=== PATIENT | female | born 1985 | race Caucasian/White ===

== ENCOUNTER 2024-07-18 03:21 | Inpatient (IN) | payer OTHER, SELFPAY ==
[2024-07-17] VITALS (9 sets, daily range): BP systolic 67–101; BP diastolic 41–75; BMI 25.5
--- NOTE | 2024-07-17 19:32 | ED.GENMED ---
History of Present Illness
General
Chief Complaint: Abdominal Pain
Source: patient and spouse
Time Seen by Provider: 07/17/24 19:15
History of Present Illness
History of Present Illness:
This patient is a 39-year-old female presents emergency department with complaints of discomfort in the left upper quadrant and right lower quad that started on evening and intermittently continues. Patient states the left upper quadrant
pain has been a longstanding problem and in fact had an outpatient CAT scan to evaluate this about a week or so ago that was reportedly unremarkable. She also states that she has a questionable diagnosis of Crohn and was told after a capsule study
that she does not properly digest her food. She sometimes she will vomit undigested food if she eats too much. She denies recent nausea or vomiting, fever, chills, chest pain, shortness of breath. She states she had a formed nonbloody nonblack
stool this morning, no stool since then, and it was particularly foul-smelling to her. She denies travel or recent antibiotics. Patient states the pain in her abdomen comes and goes, feels like 'I eat a cactus', also described as feeling like
things are not moving through fully. She ate and pain returned...then resolved. She ate again today and pain returned, which prompted her visit here.
Past History
Past History
ED Past Medical History: Fibromyalgia, GERD, Other (Chronic pain, Crohn's disease, IBS Under pain management) and Other
ED Past Surgical History: Cholecystectomy, and Other (Breast augmentation)
Social History
Tobacco: Former smoker
Alcohol: Occasional
Drug: None
Personal: Single
Living: with family
Employment: Disabled
Family History
Family History: Other (Noncontributory )
Phy Exam
Physical Exam
Physical Exam:
GENERAL: Alert , in no apparent distress
EYE: pupils equal and reactive
NECK: Supple, no significant adenopathy.
ENT: o/p clr, mmm.
CARDIAC: Regular rate and rhythm .
LUNGS: Clear breath sounds bilaterally, no acute respiratory distress, no wheezes/rales/rhonchi
ABDOMEN: Soft, nonspecific vague tenderness, no r/g, no cvat
NEUROLOGICAL: Alert and oriented, no focal neuro deficits
SKIN: Warm and dry, skin intact.
MUSCULOSKELETAL: No edema, well perfused.
PSYCH: Normal and appropriate interaction.
Course
Orders/Labs/Results
Orders:
Orders
07/17/24 19:31
Dicyclomine [Bentyl] 20 mg PO NOW STA
Test Result ONCE
CR Obstruct Series W/pa Chest Urgent
Comment:
Reason For Exam: abd pain
07/17/24 19:35
Complete Blood Count/No Diff Urgent
Comprehensive Metabolic Panel Urgent
HCG, Serum Qualitative Screen Urgent
Lipase Urgent
07/17/24 19:42
Urinalysis Reflex To Culture Urgent
Date Specimen was Collected: 07/17/24
Time Specimen was Collected: 19:37
Urine Microscopic Reflex Cult Urgent
07/17/24 22:21
CT Abd/Pel (IV only)-DH only Urgent
Comment:
Reason For Exam: PAIN, HX CROHNS/IBS
0.9% Sodium Chloride 500 ml [Nss] 500 ml IV BOLUS
07/17/24 22:24
HYDROmorphone [Dilaudid] 0.5 mg IV NOW STA
07/18/24 01:37
LevoFLOXacin 500 MG/100 ML [Levaquin] 500 mg in 100 ml IV NOW
MetroNIDAZOLE 500 MG/100 ML [Flagyl 500 mg] 100 ml IV NOW
Abnormal Lab Results
07/17/24 07/17/24
19:35 19:42
RBC 3.27 L 10^6/uL
(4.20-5.40)
Hgb 10.1 L g/dL
(12.0-16.0)
Hct 29.0 L %
(37.0-47.0)
Leukocyte Esterase Rfl Trace A
(Negative)
07/17/24 19:35
07/17/24 19:35
Vital Signs
Initial and Last Documented VS:
Initial Vital Signs
Temp Pulse Resp BP Pulse Ox
97.3 F 91 16 101/75 100
07/17/24 18:53 07/17/24 18:53 07/17/24 18:53 07/17/24 18:53 07/17/24 18:53
Last Documented Vital Signs
Temp Pulse Resp BP Pulse Ox
97.3 F 66 11 79/53 99
07/17/24 18:53 07/18/24 00:00 07/18/24 00:00 07/18/24 00:00 07/18/24 00:00
*Critical Care Note
Total Time (30-74mins, 75-104mins- exclusive of procedures): Not Applicable
Update Note
Update Note:
Patient presents to the Emergency Department with __abdominal pain
Number and Complexity of Problems Addressed at the Encounter
� Chronic conditions affecting care:
� Acute Exacerbation and/or Progression of Chronic Illness:
� Differential Diagnosis includes: But not limited to IBS, bowel obstruction, ileus, etc. etc.
Amount and/or Complexity of Data to be Reviewed and Analyzed
� I performed an independent evaluation of and my interpretation is:
EKG:
CT: Vision read 'mural thickening of the cecum and proximal ascending colon with surrounding inflammatory stranding, most likely representing colitis. This may represent an IBD/Crohn's flare. Consider other infectious
inflammatory etiologies as well. The colon involved by the inflammatory stranding contains diverticulosis. Although the diverticula do not appear discretely inflamed, given the extent of inflammatory stranding, and early superimposed
diverticulitis is also possible. Mural thickening of the bladder is also suspicious for concurrent cystitis. Correlation with UA is recommended. The appendix itself is not inflamed. No evidence of bowel obstruction. Noninflamed colonic
diverticulosis seen elsewhere throughout the colon. Small amount of pelvic free fluid. Bilateral femoral head osteonecrosis.)
Xrays: obstr series nad
Laboratory Studies:baseline anemia, otherwise unremkarable
Other:
� Review of other/old records reveals:
� Clinical information was obtained by an independent historian: Partner who is at bedside
� Prescriptions/Medications Considered but not given:
� Further testing considered but not performed:
Risk of Complications and/or Morbidity or Mortality of Patient Management
� Social determinants of health affecting care:
� Discussion with other providers (PCP, Hospitalists, Consultants, etc):
� Escalation of care including admission/observation vs risk of discharge considered: 10:00 PM Long discussion with patient, consideration for further testing such as CAT scan here although weighing risks and benefits of further
radiation and suspected low likelihood of further findings (ex. appy, ex Crohn's flare etc) given nl labs, no fever, no focal ttp, etc...she elects to go home with observation at home, bland diet, and GI f/u. D/w her import of f/ua nd reasons to
rted, encouraged to RTED if sxs persist/change/worsen.
10:25pm Pt developed an episode of hypotension just prior to discharge...no change in pain. Will readjust w/u, CT ordered, NS running, pt awake and alert.
158AM CT scan noted, pt aware of recommendation for iv abx, admission/observation. We have rechecked bp many times...hypotension continues, although not c/w her clinical exam i.e. she is without sxs, not dizzy, sitting up awake and alert. NS
ordered, TT to Dr Le aware of admission and details.
ED Attending Note
-
Portions of this chart may have been created with voice recognition software.� Occasional wrong word or��sound alike� substitutions may have occurred due to the inherent limitations of voice recognition software.
Discharge Plan
Departure
Patient Disposition: Admit
Date of Disposition: 07/18/24
Time of Disposition: 01:56
Admit to: Telemetry
Admit to doctor: spenser
Presentation/result/management discussed w/ accepting MD/DO: Hospitalist
Patient with high blood pressure during this ER visit?: No
Condition: Good
Discharge Problem:
Abdominal pain, Colitis
Instructions: Abdominal Pain
Prescriptions:
No Action
oxycodone 10 MG tablet
10 mg PO Q6H PRN (Reason: moderate pain)
Patient Comments:
03/29/2023: last filled 03/14/23, 120 tabs for 30 days from [facility]
tizanidine 4 mg tablet
8 mg PO HS
tizanidine 4 mg tablet
4 mg PO DAILY PRN (Reason: muscle spasms)
propranolol 10 mg tablet
10 mg PO QID
gabapentin 300 mg capsule
600 mg PO HS
gabapentin 300 mg capsule
300 mg PO DAILY PRN (Reason: neuropathy)
dicyclomine 10 mg Capsule
10 mg PO DAILY PRN (Reason: left lower quadrant pain) Qty: 30 0RF
silver sulfadiazine 1 % Cream
1 applic topical BIDPRN PRN (Reason: right hand skin wound) Qty: 25 0RF
nicotine 14 mg/24 hr Patch 24 Hour
14 mg transdermal DAILY Qty: 30 0RF
pantoprazole 40 mg Tablet,Delayed Release (Dr/Ec)
40 mg PO BID Qty: 60 0RF
Referrals:
Rogers Bailey IV, MD [Family Provider] -
Rai Cooper MD [Active] - Next open appointment
Activity Restrictions/Additional Instructions:
IF YOU DEVELOP INCREASING/NEW/PERSISTENT PAIN, FEVER, VOMITING, BLEEDING, DIZZINESS, OR OTHER WORRISOME SIGNS, GO TO THE ER IMMEDIATELY!
Interventions
Interventions:
*Risk Screen - Suicide Last Done: 07/17/24 18:53
*General Assessment Last Done: 07/17/24 19:38
*Neglect/Abuse Screening Last Done: 07/17/24 18:53
ED- Fall Risk Assessment Last Done: 07/17/24 19:39
*ED COVID-19 Vaccine History Last Done: 07/17/24 19:38
HV-Ebqocr-Tmwvyryvyi Assessment Last Done: 07/17/24 19:39
Discharge Date and Time
Print Language: KOREAN
[2024-07-17 19:41] LABS: Hemoglobin 10.1 g/dL (12.0-16.0); Mean Corp Hgb Conc. 34.8 g/dL (33.0-37.0); Mean Corpuscular Hgb 30.9 pg (27.0-31.0); Mean Corpuscular Volume 88.7 fL (81.0-99.0); Mean Platelet Volume 9.5 fL (7.4-10.4); Platelet Count 324 10^3/uL (130-400); Red Blood Cell Count 3.27 10^6/uL (4.20-5.40); Red Cell Dist. Width 13.5 % (11.5-14.5); White Blood Cell Count 10.6 10^3/uL (4.8-10.8)
[2024-07-17] MEDS: BENTYL 20 MG PO (19:45)
[2024-07-17 19:49] LABS: Urine Albumin Negative (Neg - Trace); Urine Bilirubin Negative (Negative); Urine Character Clear (Clear); Urine Color Yellow; Urine Glucose Negative (Negative); Urine Ketone Negative (Negative); Urine Leukocyte Trace (Negative); Urine Nitrite Negative (Negative); Urine Occult Blood Negative (Negative); Urine Specific Gravity 1.025 (<1.030); Urine Urobilinogen Negative (Neg - 1+)
[2024-07-17 19:53] LABS: HCG, Serum Qualitative Screen Negative
[2024-07-17 19:57] LABS: ALT (SGPT) 13 U/L (0-35); AST (SGOT) 18 U/L (14-36); Albumin 4.1 g/dl (3.5-5.0); Alkaline Phosphatase 63 U/L (38-126); Blood Urea Nitrogen 11 mg/dl (7-17); Calcium 9.2 mg/dl (8.4-10.2); Carbon Dioxide 28 mmol/L (22-30); Chloride 101 mmol/L (98-107); Estimated Creatinine Clearance 95 ml/min; Glucose 84 mg/dl (70-99); Lipase 101 U/L (23-300); Sodium 139 mmol/L (135-145); Total Bilirubin 0.6 mg/dl (0.2-1.3); Total Protein 6.5 g/dl (6.3-8.2); eGFR > 60.00
[2024-07-17 20:00] LABS: Urine Red Blood Cell 0-2 /HPF (0-2); Urine White Cell 0-2 /HPF (0-5)
[2024-07-17] MEDS: NSS 500 IV (22:39)
[2024-07-17] MEDS: DILAUDID 0.5 MG IV (22:40)
--- NOTE | 2024-07-17 23:15 | EDRN ---
Report received, introduced myself to patient, her BP is still low, only about 200cc left of normal saline, spoke with Dr. Momin would like patient to go to CT sooner rather then later, informed assistant unit forester, patient is A/oX3 will continue to monitor,
Dr. Momin does not want patient getting up out of bed right now.
[2024-07-18] VITALS (29 sets, daily range): BP systolic 48–125; BP diastolic 28–102; PULSE 77–86; BMI 25.6
--- NOTE | 2024-07-18 00:30 | EDRN ---
Patients fluids completed, BP remains low, Dr. Momin aware, wants to see how the CT is, patient A/Ox3, will continue to closely monitor
--- NOTE | 2024-07-18 01:30 | EDRN ---
Patient nutrition specialist calles, wanting to use restroom, patients BP still remains low, so we did a bedside commode with me standing right next to patient, patient reports slight dizziness sometimes when standing, however is able to urinate and back in bed
resting comfortably, repeated patients BP once back in bed, repeat pressure was 69/45 (54), informed Dr. Momin of everything, Dr. Momin back in at bedside going over CT results with patient and plan for patient to be admitted to the hospital. Did a
manual blood pressure with BP of 78/54, informed Dr. Momin of this, meds being ordered for patient to receive.
[2024-07-18] MEDS: LEVAQUIN 100 IV (01:59)
[2024-07-18] MEDS: NSS 1000 IV (02:00)
--- NOTE | 2024-07-18 02:39 | EDRN ---
Dr. Le in at bedside working on admission with patient.
[2024-07-18] MEDS: ProAmatine 5 MG PO (02:48)
[2024-07-18] MEDS: FLAGYL 500 MG 100 IV (02:48)
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
[2024-07-18] MEDS: TORADOL 15 MG IV (03:34)
--- NOTE | 2024-07-18 03:41 | EDRN ---
Patient needing to use restroom, walked with patient into restroom, was able to ambulate without being dizzy and then back in bed and repeated blood pressure which seems to be holding with systolic in the upper 80s, will continue to monitor, patient
aware we are waiting on a bed at this time.
--- NOTE | 2024-07-18 04:16 | EDRN ---
Patient is sleeping at this time, call calles in reach, blood pressure is increasing at this time, will continue to monitor
[2024-07-18] MEDS: ZOSYN 50 IV ×3 (06:03→17:24)
[2024-07-18 06:38] LABS: Hematocrit 30.9 % (37.0-47.0); Hemoglobin 10.5 g/dL (12.0-16.0); Mean Corpuscular Hgb 30.5 pg (27.0-31.0); Mean Corpuscular Volume 89.8 fL (81.0-99.0); Mean Platelet Volume 9.7 fL (7.4-10.4); Platelet Count 292 10^3/uL (130-400); Red Blood Cell Count 3.44 10^6/uL (4.20-5.40); Red Cell Dist. Width 13.5 % (11.5-14.5); White Blood Cell Count 8.1 10^3/uL (4.8-10.8)
[2024-07-18] MEDS: LR 1000 IV ×2 (06:40→17:24)
[2024-07-18 06:49] LABS: Lactic Acid 0.6 mmol/L (0.7-2.0)
--- NOTE | 2024-07-18 06:50 | PTCARENOTE ---
Received pt from the ED via stretcher; pt with steady gait from stretcher to hospital bed. AAOx3, NSR on the monitor, lungs clear, SpO2 98% on RA. BP stable 96/68, no complaints of dizziness/lightheadedness. Pt c/o 8/10 pain, politely declines pain
meds at this time, pt states she is hoping to go home today and f/u outpatient per the plan prior to her hypotensive episode in the ED. Pt updated on POC, no questions at this time, resting comfortably in bed, call calles within reach.
[2024-07-18 06:56] LABS: Iron 50 ug/dl (37-170)
[2024-07-18 06:58] LABS: Blood Urea Nitrogen 7 mg/dl (7-17); Carbon Dioxide 25 mmol/L (22-30); Chloride 108 mmol/L (98-107); Estimated Creatinine Clearance 111 ml/min; Glucose 91 mg/dl (70-99); Sodium 142 mmol/L (135-145); eGFR > 60.00
[2024-07-18 07:05] LABS: Percent Saturation 16 % (20-50); Total Iron Binding Capacity 303 ug/dl (265-497)
[2024-07-18 07:28] LABS: Cortisol, Random 16.2 ug/dl
--- NOTE | 2024-07-18 07:34 | PTCARENOTE ---
Ignore documented BP 48/39 - BP cuff was not on patient. Actual BP 97/47.
[2024-07-18 07:50] LABS: Erythrocyte Sed Rate 43 mm/hour (0-20)
[2024-07-18] MEDS: PROTONIX IV 40 MG IV (09:09)
[2024-07-18] MEDS: NSS (PRESERVATIVE FREE) 10 ML IV (09:09)
--- NOTE | 2024-07-18 09:10 | CON.GI ---
Consultation
-
Date/Time Consultation Requested: 07/18/24 at 7am
Date/Time Consultation Performed: 07/18/24 at 8am
Requesting Provider: Rey
Performing Provider: Salma
Reason for Consultation: abd pain
Medical History
Chief Complaint / HPI
Chief Complaint: abd pain
History of Present Illness:
This patient is a 39-year-old woman with a history of chronic GI symptoms who was first seen in 2013 for question of Crohn's disease with negative studies who has been seeing Dr. Cooper in our GI office last year for vague right lower quadrant and
left upper quadrant abdominal pain. At that time she had both an upper and lower endoscopy done. She did have large polyps in her colon and actually did have a post polypectomy bleed requiring repeat colonoscopy. Biopsies and brief visualization
of the terminal ileum were normal. The patient states that she had been doing fine since that time and developed some recurrent pain symptoms.. She states that the pain was in her left upper quadrant or right lower quadrant again and occurred
after she ate some foods that she should not have. She did not have any nausea or vomiting and did not have any diarrhea. She came to the emergency room and did have a CAT scan done which showed moderate inflammation of the cecum and TI. She was
admitted after her blood pressure was low although her symptoms did appear to rapidly improve.
Past Medical History
Past Medical History: HTN and Other (chronic pain)
Past Surgical History: Cholecystectomy and
Social History
Tobacco: Former Smoker
Family History
Family History: Other (father with crohns)
Allergies / Home Medications
Allergy/AdvReac Type Severity Reaction Status Date / Time
morphine AdvReac Nausea / Verified 07/17/24 18:53
Vomiting
�Medication �Instructions �Recorded
oxycodone 10 mg tablet 10 mg PO Q6H PRN moderate pain 05/05/20
gabapentin 300 mg capsule 300 mg PO TIDPRN PRN neuropathy 03/29/23
tizanidine 4 mg tablet 4 mg PO TIDPRN PRN muscle spasms 03/29/23
oxycodone myristate 13.5 mg 13.5 mg PO BID 07/18/24
capsule sprinkle extend release
12hr(DON'T CRUSH) (Xtampza ER)
pantoprazole 40 mg tablet,delayed 40 mg PO DAILY Gastrointestinal 07/18/24
release issue
propranolol 10 mg tablet 10 mg PO TID PRN Anxiety 07/18/24
Review of Systems
-
All other systems: A 12 pt ROS was Negative except as stated above in HPI
Vital Signs
Temp Pulse Resp BP Pulse Ox
97.6 F 64 13 97/47 98
07/18/24 07:35 07/18/24 07:30 07/18/24 07:30 07/18/24 07:24 07/18/24 07:30
Physical Exam
Exam
General: No Apparent Distress
HEENT: Anicteric
Cardiac: S1/S2
GI: Soft, Non Tender and Normal Bowel Sounds
Skin: Warm
Neuro: Awake
Psych: Calm
Results
WBC 8.1 10^3/uL (4.8-10.8) 07/18/24 06:14
Hgb 10.5 g/dL (12.0-16.0) L 07/18/24 06:14
Hct 30.9 % (37.0-47.0) L 07/18/24 06:14
MCV 89.8 fL (81.0-99.0) 07/18/24 06:14
Plt Count 292 10^3/uL (130-400) 07/18/24 06:14
Sodium 142 mmol/L (135-145) 07/18/24 06:14
Potassium 4.0 mmol/L (3.5-5.1) 07/18/24 06:14
Chloride 108 mmol/L (98-107) H 07/18/24 06:14
Carbon Dioxide 25 mmol/L (22-30) 07/18/24 06:14
BUN 7 mg/dl (7-17) 07/18/24 06:14
Creatinine 0.5 mg/dL (0.6-1.0) L 07/18/24 06:14
Calcium 9.0 mg/dl (8.4-10.2) 07/18/24 06:14
Total Bilirubin 0.6 mg/dl (0.2-1.3) 07/17/24 19:35
AST 18 U/L (14-36) 07/17/24 19:35
ALT 13 U/L (0-35) 07/17/24 19:35
Alkaline Phosphatase 63 U/L (38-126) 07/17/24 19:35
Lipase 101 U/L (23-300) 07/17/24 19:35
Assessment / Plan
-
This patient is a 39-year-old woman with a history of IBS and a questionable history of IBD. She has been evaluated twice in the past with negative studies. She was admitted with abdominal pain after having dietary indiscretion and had a CT with
moderate inflammation of the cecum/TI (c/w IBD vs diverticulitis) with normal labs and was to follow-up as an outpatient. She was admitted after having low blood pressure which she states was asymptomatic. For now we will do the following
1. check fecal calpro, sed rate and crp
2. clear liquids as she is symptomatically improved
3. can continue zosyn
4. follow wbc
5. if diarrhea will send stool studies
6. she will need outpatient f/u with Dr. Cooper
Data Reviewed
-
CT Scan: Image Personally Visualized and interpreted and Report Reviewed by me
-
-
Thank you for consultation and allowing me to participate in the patient's care. Please call the material preparation worker GI physician during the after hours with any questions or concerns.
[2024-07-18] MEDS: ROXICODONE 10 MG PO (10:23)
[2024-07-18] MEDS: NICODERM TRANSDERMAL 21 MG TRANSDERM (14:29)
--- NOTE | 2024-07-18 18:09 | PTCARENOTE ---
Patient AAOx3, pleasant, stressed. States abdominal pain improved. Tolerating FLD. No NVD. BP stable. VSS. Orthos -. Patient eager for DC today. Continuing to monitor.
--- NOTE | 2024-07-18 18:09 | W.PN.UPDATE ---
Update Note
Progress Note Update
RN informed that patient anxious to leave, concerned about caring for her child
Will provide script for isaac and zuly.
Patient to follow up with GI in office post discharge
--- NOTE | 2024-07-18 19:00 | PTCARENOTE ---
Reviewed DC paperwork with patient. All questions answered. VSS. IV removed. Patient left hospital with ex and son. Refused wheelchair escort.
== END 2024-07-18 19:02 | disposition home or self-care (01) | DRG 392 ==
LOC: IMU 03:21
PROVIDERS: ADMITTING PHYSICIAN Hospitalist; ATTENDING PHYSICIAN Hospitalist; CONSULT PHYSICIAN Internal Medicine; EMERGENCY PHYSICIAN Emergency Medicine; FAMILY PHYSICIAN Family Medicine
DX: K57.32 Diverticulitis of large intestine without perforation or abscess without bleeding (principal); F11.20 Opioid dependence, uncomplicated; D64.9 Anemia, unspecified; I10 Essential (primary) hypertension; I95.9 Hypotension, unspecified; G89.4 Chronic pain syndrome; K21.9 Gastro-esophageal reflux disease without esophagitis; K58.9 Irritable bowel syndrome, unspecified; M79.7 Fibromyalgia; G62.9 Polyneuropathy, unspecified; Z79.899 Other long term (current) drug therapy; Z87.891 Personal history of nicotine dependence; Z90.49 Acquired absence of other specified parts of digestive tract; Z86.010 Personal history of colon polyps; Z88.5 Allergy status to narcotic agent
CPT/HCPCS: 74022; 74177; 80048; 80053; 81003; 81015; 82533; 83540; 83550; 83605; 83690; 84703; 85027; 85652; 86140; 96361; 96365; 96367; 96375; 99285; Q9967

== ENCOUNTER → 2024-08-25 15:07 | Outpatient (REF) | payer OTHER, SELFPAY | LOC: HWRAD 15:07 | PROVIDERS: ATTENDING PHYSICIAN Nurse Practitioner Family; FAMILY PHYSICIAN Family Medicine | DX: R10.32 Left lower quadrant pain (principal) | CPT/HCPCS: 74177; Q9967 ==

== ENCOUNTER → 2024-09-02 06:38 | Day surgery (SDC) | payer OTHER, SELFPAY | LOC: GI 06:38 | PROVIDERS: ATTENDING PHYSICIAN Internal Medicine | DX: R10.12 Left upper quadrant pain (principal); K29.70 Gastritis, unspecified, without bleeding | CPT/HCPCS: 43239; 88305; 88342 ==

== ENCOUNTER → 2024-09-22 06:16 | Day surgery (SDC) | payer OTHER, SELFPAY | LOC: GI 06:16 | PROVIDERS: ATTENDING PHYSICIAN Internal Medicine | DX: D12.4 Benign neoplasm of descending colon (principal); D17.5 Benign lipomatous neoplasm of intra-abdominal organs; R10.84 Generalized abdominal pain; K57.30 Diverticulosis of large intestine without perforation or abscess without bleeding; K57.32 Diverticulitis of large intestine without perforation or abscess without bleeding | CPT/HCPCS: 45385; 45380; 88305 ==

== ENCOUNTER → 2024-12-08 11:13 | Outpatient (REF) | payer OTHER, SELFPAY | LOC: MRI 3T 11:13 | PROVIDERS: ATTENDING PHYSICIAN Internal Medicine; FAMILY PHYSICIAN Family Medicine; PRIMARYCARE PHYSICIAN Family Medicine | DX: R10.33 Periumbilical pain (principal); R11.14 Bilious vomiting; K50.90 Crohn's disease, unspecified, without complications | CPT/HCPCS: 72197; 74183; A9585 ==

== ENCOUNTER → 2025-03-08 14:23 | Outpatient (REF) | payer OTHER, SELFPAY | LOC: RAD 14:23 | PROVIDERS: ATTENDING PHYSICIAN Internal Medicine; FAMILY PHYSICIAN Family Medicine | DX: R14.0 Abdominal distension (gaseous) (principal) | CPT/HCPCS: 74019 ==

== ENCOUNTER → 2025-03-14 18:51 | Outpatient (REF) | payer OTHER, SELFPAY | LOC: MRI 3T 18:51 | PROVIDERS: ATTENDING PHYSICIAN Internal Medicine; FAMILY PHYSICIAN Family Medicine | DX: K86.1 Other chronic pancreatitis (principal); R10.9 Unspecified abdominal pain; G89.29 Other chronic pain | CPT/HCPCS: 74183; A9575 ==

== ENCOUNTER → 2025-03-30 08:00 | Outpatient (REF) | payer OTHER, SELFPAY | LOC: RAD 08:00 | PROVIDERS: ATTENDING PHYSICIAN Internal Medicine; FAMILY PHYSICIAN Family Medicine | DX: R14.0 Abdominal distension (gaseous) (principal) | CPT/HCPCS: 78264; A9541 ==

== ENCOUNTER → 2025-04-01 09:50 | Outpatient (REF) | payer OTHER, SELFPAY | LOC: RAD 09:50 | PROVIDERS: ATTENDING PHYSICIAN Internal Medicine; FAMILY PHYSICIAN Family Medicine | DX: R11.2 Nausea with vomiting, unspecified (principal); R13.19 Other dysphagia | CPT/HCPCS: 74246; 74248 ==

== ENCOUNTER 2025-04-02 14:27 | Emergency (ER) | payer OTHER, SELFPAY ==
[2025-04-02 14:28] VITALS: BP 133/84
[2025-04-02 14:52] LABS: % Basophils 0.8 % (0-2); % Eosinophils 1.3 % (0-6); % Immature Granulocytes 0.2 % (0-0.5); % Lymphocytes 32.6 % (20.5-51.1); % Monocytes 7.4 % (1.7-9.3); % Neutrophils 57.7 % (42.2-75.2); Absolute Basophils 0.1 10^3/uL (0-0.2); Absolute Eosinophils 0.1 10^3/uL (0-0.7); Absolute Lymphocytes 2.8 10^3/uL (1.2-3.4); Absolute Monocytes 0.6 10^3/uL (0.1-0.6); Hematocrit 34.7 % (37.0-47.0); Hemoglobin 11.8 g/dL (12.0-16.0); Mean Corpuscular Hgb 31.1 pg (27.0-31.0); Mean Corpuscular Volume 91.3 fL (81.0-99.0); Mean Platelet Volume 9.7 fL (7.4-10.4); Nucleated Red Blood Cells % 0 %; Platelet Count 339 10^3/uL (130-400); Red Cell Dist. Width 13.2 % (11.5-14.5); White Blood Cell Count 8.7 10^3/uL (4.8-10.8)
[2025-04-02 15:12] LABS: HCG, Serum Qualitative Screen Negative
[2025-04-02 15:15] LABS: ALT (SGPT) 11 U/L (0-35); AST (SGOT) 17 U/L (14-36); Albumin 4.2 g/dl (3.5-5.0); Alkaline Phosphatase 59 U/L (38-126); Blood Urea Nitrogen 5 mg/dl (7-17); Calcium 9.5 mg/dl (8.4-10.2); Carbon Dioxide 29 mmol/L (22-30); Chloride 103 mmol/L (98-107); Glucose 98 mg/dl (70-99); Lipase 78 U/L (23-300); Potassium 4.1 mmol/L (3.5-5.1); Sodium 139 mmol/L (135-145); Total Bilirubin 0.8 mg/dl (0.2-1.3); eGFR > 60.00
[2025-04-02 15:26] LABS: Troponin I < 0.012 ng/ml
--- NOTE | 2025-04-02 16:42 | ED.GENMED ---
History of Present Illness
General
Chief Complaint: Abdominal Pain
Source: patient
Exam Limitations: none
Time Seen by Provider: 04/02/25 16:33
Nursing documentation reviewed up to this point in time: agreed with
History of Present Illness
History of Present Illness:
40 yo female w h/o Crohn's, HTN, GERD, IBS, cholecystectomy states last p.m. had mid chest 'burning, like reflux' pain. This a.m. woke 'shaky and heart pounding like a heart attack or panic attack' lasted 1 hour. Vomited bile x 4, last emesis noon
(5 hours ago). I'm afraid I have pancreatitis. States she's starting to feel better now. Still with mild mid to upper abd discomfort, denies nausea.
Followed by GI Dr. Carey. Had UGI series yesterday and gastric emptying study 3 days ago revealing delayed gastric emptying.
Has been taking her Pantoprazole BID as prescribed.
Past History
Past History
ED Past Medical History: Fibromyalgia, GERD, Other (Chronic pain, Crohn's disease, IBS Under pain management) and Other
ED Past Surgical History: Cholecystectomy, and Other (Breast augmentation)
Social History
Tobacco: Former smoker
Alcohol: Occasional
Drug: None
Personal: Single
Living: with family
Employment: Disabled
Family History
Family History: Other (Noncontributory )
Review of Systems
Review of Systems
Allergies reviewed?: Yes
All Other Systems: ROS reviewed and negative except as documented in HPI and ROS
Constitutional: Denies fever or chills
Respiratory: Denies trouble breathing
Cardiac: Denies chest pain
ABD/GI: Reports abdominal pain, nausea and vomiting; Denies diarrhea or constipated
: Denies dysuria, frequency or difficulty voiding
Musculoskeletal: Reports no symptoms
Skin: Reports no symptoms
Neurological: Reports no symptoms
Phy Exam
Physical Exam
Physical Exam:
GENERAL: No acute distress. A&Ox3.
CONSTITUTIONAL: Afebrile.
EYES: clear, conjunctivae normal
ENMT: moist mucus membranes
RESPIRATORY: Regular respirations, nonlabored, lungs clear.
CARDIOVASCULAR: Regular rate and rhythm, no murmurs, no rubs.
GI: Soft, tender mid to left abdomen and epigastric areas, nondistended, normal BS
MUSCULOSKELETAL: Moves with ease. Well perfused.
SKIN: Warm, dry, pink
PSYCH: Normal mood and affect. Well kept, interactive and appropriate
NEUROLOGIC: Awake, alert and oriented. No focal neurological deficits
Course
Orders/Labs/Results
Orders:
Orders
04/02/25 14:35
Electrocardiogram (*1) Urgent
Reason for Study: Chest Pain
EKG- Treatment ONCE
Test Result ONCE
04/02/25 14:45
Complete Blood Count/With Diff Urgent
Comprehensive Metabolic Panel Urgent
HCG, Serum Qualitative Screen Urgent
Lipase Urgent
Troponin I Urgent
04/02/25 17:11
CT Abd/pel W Iv And Oral Contr Urgent
Comment:
Reason For Exam: abdominal pain
Iohexol [Omnipaque] See Protocol PO NOW STA
Abnormal Lab Results
04/02/25
14:45
RBC 3.80 L 10^6/uL
(4.20-5.40)
Hgb 11.8 L g/dL
(12.0-16.0)
Hct 34.7 L %
(37.0-47.0)
MCH 31.1 H pg
(27.0-31.0)
BUN 5 L mg/dl
(7-17)
04/02/25 14:45
04/02/25 14:45
Vital Signs
Initial and Last Documented VS:
Initial Vital Signs
Temp Pulse Resp BP Pulse Ox
98.4 F 71 18 133/84 98
04/02/25 14:28 04/02/25 14:28 04/02/25 14:28 04/02/25 14:28 04/02/25 14:28
Last Documented Vital Signs
Temp Pulse Resp BP Pulse Ox
98.4 F 106 16 137/89 98
04/02/25 14:28 04/02/25 17:36 04/02/25 18:00 04/02/25 17:36 04/02/25 17:36
MDM/Problems Addressed
Differential Diagnosis Includes:
pancreatitis, diverticulitis, IBS, GERD
MDM/Problems Addressed:
40 yo female w h/o Crohn's, HTN, GERD, IBS, cholecystectomy states last p.m. had mid chest 'burning, like reflux' pain. This a.m. woke 'shaky and heart pounding like a heart attack or panic attack' lasted 1 hour. Vomited bile x 4, last emesis noon
(5 hours ago). It feels like when I get pancreatitis. States she's starting to feel better now. Still with mild mid to upper abd discomfort, denies nausea.
Had gastric emptying study 3 days ago. Report reviewed: 'delayed gastric emptying.'
Has been taking her Pantoprazole BID as prescribed.
EKG NSR
Followed by GI Dr. Carey. Had UGI series yesterday: report reviewed: IMPRESSION:
Gastric mucosal folds at least top normal.. Cannot exclude mild gastritis.
Possible minimal short segment thickening of the terminal ileum. Incompletely opacified/distended cecum with likely irregular mucosal thickening. Cannot exclude fistulous communication between the terminal ileum and cecum. Overall findings could
represent Inflammatory Bowel Disease or right-sided diverticulitis, particularly in correlation with findings on prior Abdomen CT July 17, 2024.. Suggest direct visualization with colonoscopy or CT of the Abdomen and Pelvis with oral or
intravenous contrast.
CBC, CMP unremarkable.
Lipase normal
Troponin WNL
HCG neg
8:15 PM:
CAT scan abdomen pelvis with p.o. and IV contrast radiology report read: IMPRESSION:
1. Residual barium contrast from recent upper GI study is scattered throughout the colon with associated streak artifact markedly limited evaluation.
2. Within these limitations, no definite acute inflammatory process is identified in the abdomen or pelvis, although cannot be excluded. If symptoms persist, consider follow-up imaging after barium contrast has passed.
Results discussed with patient and copy of CAT scan given to her
She has a scheduled follow-up appointment with her GI doctor on Friday
*Critical Care Note
Total Time (30-74mins, 75-104mins- exclusive of procedures): Not Applicable
ED Attending Note
-
Portions of this chart may have been created with voice recognition software.� Occasional wrong word or��sound alike� substitutions may have occurred due to the inherent limitations of voice recognition software.
Discharge Plan
Departure
Patient Disposition: Home (Routine Discharge)
Date of Disposition: 04/02/25
Time of Disposition: 20:22
Patient with high blood pressure during this ER visit?: No
Condition: Good
Discharge Problem:
Epigastric pain, Abdominal pain
Instructions: Acid Reflux and GERD in Adults (DC), Abdominal Pain
Prescriptions:
No Action
oxycodone 10 MG tablet
10 mg PO Q6H PRN (Reason: moderate pain)
Patient Comments:
03/29/2023: last filled 03/14/23, 120 tabs for 30 days from [facility]
tizanidine 4 mg tablet
4 mg PO TIDPRN PRN (Reason: muscle spasms)
gabapentin 300 mg capsule
300 mg PO TIDPRN PRN (Reason: neuropathy)
propranolol 10 mg Tablet
10 mg PO TID PRN (Reason: Anxiety)
Xtampza ER 13.5 mg Cap,Sprinkl,Er12hr(Dont Crush)
13.5 mg PO BID
pantoprazole 40 mg tablet,delayed release (DR/EC)
40 mg PO DAILY
ciprofloxacin HCl 500 mg tablet
500 mg PO BID Qty: 10 0RF
metronidazole 500 mg tablet
500 mg PO Q8H 5 Days Qty: 15 0RF
Referrals:
Tamie Carey MD [Active] - Follow up in 2-3 days
Jonnathan Quiroz MD [Primary Care Provider] -
Rogers Bailey IV, MD [Family Provider] -
Activity Restrictions/Additional Instructions:
As we discussed, nothing worrisome in your workup here today, specifically no indication of pancreatitis.
Your CT scan shows not inflammation but due to the barium in your bowels, it is a limited evaluation. Please discuss with Dr. Carey
Follow up with your GI doctor Friday as scheduled.
Interventions
Interventions:
*Risk Screen - Suicide Last Done: 04/02/25 14:28
*General Assessment Last Done: 04/02/25 14:28
*Neglect/Abuse Screening Last Done: 04/02/25 14:28
*ED- Fall Risk Assessment Last Done: 04/02/25 16:42
*ED COVID-19 Vaccine History Last Done: 04/02/25 16:42
VX-Kxrtlk-Txuxsnwbat Assessment Last Done: 04/02/25 17:36
Discharge Date and Time
Print Language: SLOVAK
[2025-04-02] MEDS: OMNIPAQUE 50 ML PO (17:27)
[2025-04-02 17:36] VITALS: BP 137/89
[2025-04-02 20:28] VITALS: BP 98/64
== END 2025-04-02 20:35 | disposition home or self-care (01) ==
LOC: EMR 14:27
PROVIDERS: EMERGENCY PHYSICIAN Emergency Medicine; FAMILY PHYSICIAN Family Medicine; PRIMARYCARE PHYSICIAN Family Medicine
DX: R10.13 Epigastric pain (principal); I10 Essential (primary) hypertension; K21.9 Gastro-esophageal reflux disease without esophagitis; K50.90 Crohn's disease, unspecified, without complications; Z87.891 Personal history of nicotine dependence; Z90.49 Acquired absence of other specified parts of digestive tract
CPT/HCPCS: 99284; 74177; 80053; 83690; 84484; 84703; 85025; 93005; Q9967

== ENCOUNTER → 2025-09-13 08:14 | Outpatient (REF) | payer OTHER, SELFPAY | LOC: HWRAD 08:14 | PROVIDERS: ATTENDING PHYSICIAN Obstetrics & Gynecology; FAMILY PHYSICIAN Family Medicine | DX: N93.9 Abnormal uterine and vaginal bleeding, unspecified (principal) | CPT/HCPCS: 76830; 76856 ==

== ENCOUNTER → 2025-09-15 12:43 | Outpatient (REF) | payer OTHER, SELFPAY | LOC: RAD 12:43 | PROVIDERS: ATTENDING PHYSICIAN Internal Medicine; FAMILY PHYSICIAN Family Medicine | DX: R93.3 Abnormal findings on diagnostic imaging of other parts of digestive tract (principal) | CPT/HCPCS: 74177; Q9967 ==